=== PATIENT | male | born 1970 | race Caucasian/White ===

== ENCOUNTER 2024-09-25 01:07 | Inpatient (IN) | payer OTHER ==
[2024-09-25] VITALS (10 sets, daily range): BP systolic 116–119; BP diastolic 61–64; PULSE 114–151; RESP 16–28; TEMP 99.8; O2SAT 91–97
[~2024-09-25] VITALS: Ht 177.8 cm; Wt 99.7 kg
[2024-09-25 01:16] LABS: Basophils # (auto) 0 10 ^3/uL (0-0.2); Basophils % (auto) 0.1 % (0.0-2.0); Eosinophils # (auto) 0 10 ^3/uL (0-0.8); Hemoglobin 9.4 g/dL (13.5-17.5); Lymphocytes # (auto) 0.6 10 ^3/uL (0.4-5.4); Lymphocytes % (auto) 10.2 % (10.0-50.0); Mean Corpuscular Hemoglobin 39.6 pg (28.0-32.0); Mean Corpuscular Hgb Conc. 34.8 g/dL (32.0-36.0); Mean Corpuscular Volume 113.9 fL (80.0-100.0); Monocytes # (auto) 0.1 10 ^3/uL (0-1.3); Monocytes % (auto) 2.3 % (0.0-12.0); Neutrophils # (auto) 5.3 10 ^3/uL (1.6-8.6); Neutrophils % (auto) 87.4 % (37.0-80.0); Platelet Count (auto) 130 10^3/uL (140-450); Red Blood Cells 2.37 10^6/uL (4.5-5.90); Red Cell Distribution Width 17.3 % (11.8-14.3); White Blood Cell 6.1 10^3/uL (4.4-10.8)
--- NOTE | 2024-09-25 01:18 | ED.PDOC ---
SOB-HPI HPI Comments A 54 year old male brought in by EMS to the ED with a chief complaint of respiratory distress onset yesterday around 11:30 am. Per EMS, patient arrived to [facility] yesterday around 1130 am with respiratory distress, was placed on 6L c-pap and had a paracentesis, had 6 L drained. Patient states he feels about 70% better since his arrival to [facility]. Patient has a past medical history of COPD and anxiety. No other symptoms or modifying factors present at this time. Time Seen by MD: :10 Reviewed notes: Medications, Allergies Information Source: Patient, Emergency Med Personnel Mode of Arrival: EMS Severity: Moderate Timing: Hours Duration: Since onset History of: COPD, Anxiety Prehospital treatment: C-Pap Associated Signs and Symptoms: Leg Swelling Past Medical History PAST MEDICAL HISTORY: Anxiety, COPD Surgical History: Denies all surgeries Family History Family History: Reviewed,noncontributory to illness, No family hx of Cancer, No family hx of DM, No family hx of Heart rose marie, No family hx of HTN, No family hx ofKidney rose marie, No family hx of Liver rose marie, No family hx of Lung rose marie, No family hx of Stroke Social History Smoker: Non-Smoker Alcohol: Denies ETOH Use Drugs: Denies Drug Use Lives In: Home Constitutional: denies: chills, diaphoresis, fatigue, fever, malaise, sweats, weakness, others EENTM: denies: blurred vision, double vision, ear bleeding, ear discharge, ear drainage, ear pain, ear ringing, eye pain, eye redness, hearing loss, mouth pain, mouth swelling, nasal discharge, nose bleeding, nose congestion, nose pain, photophobia, tearing, throat pain, throat swelling, voice changes, others Respiratory: reports: shortness of breath; denies: cough, hemoptysis, orthopnea, SOB at rest, SOB with excertion, stridor, wheezing, others Cardiovascular: reports: edema; denies: chest pain, dizzy spells, diaphoresis, Dyspnea on exertion, irregular heart beat, left arm pain, lightheadedness, palpitations, PND, syncope, others Gastrointestinal: reports: abdomen distended; denies: abdominal pain, blood streaked bowels, constipated, diarrhea, dysphagia, difficulty swallowing, hematemesis, melena, nausea, poor appetite, poor fluid intake, rectal bleeding, rectal pain, vomiting, others Genitourinary: denies: burning, dysuria, flank pain, frequency, hematuria, incontinence, penile discharge, penile sore, pain, testicle pain, testicle swelling, urgency, others Neurological: denies: dizziness, fainting, headache, left sided numbness, left sided weakness, numbness, paresthesia, pre-existing deficit, right sided numbness, right sided weakness, seizure, speech problems, tingling, tremors, weakness, others Musculoskeletal: denies: back pain, gout, joint pain, joint swelling, muscle pain, muscle stiffness, neck pain, others Integumetry: denies: bruises, change in color, change in hair/nails, dryness, laceration, lesions, lumps, rash, wounds, others Allergic/Immunocompromised: denies: Difficulty Healing, Frequent Infections, Hives, Itching, others Hematologic/Lymphatic: denies: anemia, blood clots, easy bleeding, easy bruising, swollen glands, others Endocrine: denies: excessive hunger, excessive sweating, excessive thirst, excessive urination, flushing, intolerance to cold, intolerance to heat, unexplained weight gain, unexplained weight loss, others Psychiatric: denies: anxiety, bipolar disorder, depression, hopeless, panic disorder, schizophrenia, sleepless, suicidal, others All Other Systems: Reviewed and Negative Physical Exam General Appearance: No Apparent Distress, Normal HEENT: Normal ENT Inspection, Pharynx Normal, TMs Normal Neck: Full Range of Motion, Non-Tender, Normal, Normal Inspection Respiratory: Chest Non-Tender, Lungs Clear, No Accessory Muscle Use, No Respiratory Distress, Normal Breath Sounds Cardiovascular: No Edema, No JVD, No Murmur, No Gallop, Normal Peripheral Pulses, Regular Rate/Rhythm Breast Exam: Deferred Gastrointestinal: No Organomegaly, Non Tender, No Pulsatile Mass, Normal Bowel Sounds, Soft Genitalia: Deferred Pelvic: Deferred Rectal: Deferred Extremities: Pedal edema (2+) Musculoskeletal : Apperance: Normal Neurologic: Alert, demurrage clerk II-XII nml as Tested, No Motor Deficits, Normal Affect, Normal Mood, No Sensory Deficits Cerebellar Function: Normal Reflexes: Normal Skin: Dry, Jaundice, Warm Lymphatic: No Adenopathy Was a procedure done? Was a procedure done?: No Differential Dx Differential Diagnosis: Asthma, CHF, COPD X-Ray, Labs, Meds, VS Vital Signs Date Time Temp Pulse Resp B/P (MAP) Pulse Ox O2 Delivery O2 Flow Rate FiO2 09/25/24 01:25 98.6 111 20 116/82 (93) 97 09/25/24 01:24 114 16 96 Nasal Cannula* 2 28 09/25/24 01:24 98.3 114 16 101/55 (70) 96 98.3 Lab Test 09/25/24 01:00 Range/Units White Blood Count 6.1 4.4-10.8 10^3/uL Red Blood Count 2.37 L 4.5-5.90 10^6/uL Hemoglobin 9.4 L 13.5-17.5 g/dL Hematocrit 27.0 L 41.0-53.0 % Mean Corpuscular Volume 113.9 H 80.0-100.0 fL Mean Corpuscular Hemoglobin 39.6 H 28.0-32.0 pg Mean Corpuscular Hemoglobin Concent 34.8 32.0-36.0 g/dL Red Cell Distribution Width 17.3 H 11.8-14.3 % Platelet Count 130 L 140-450 10^3/uL Mean Platelet Volume 7.3 6.9-10.8 fL Neutrophils (%) (Auto) 87.4 H 37.0-80.0 % Lymphocytes (%) (Auto) 10.2 10.0-50.0 % Monocytes (%) (Auto) 2.3 0.0-12.0 % Eosinophils (%) (Auto) 0.0 0.0-7.0 % Basophils (%) (Auto) 0.1 0.0-2.0 % Neutrophils # (Auto) 5.3 1.6-8.6 10 ^3/uL Lymphocytes # (Auto) 0.6 0.4-5.4 10 ^3/uL Monocytes # (Auto) 0.1 0-1.3 10 ^3/uL Eosinophils # (Auto) 0 0-0.8 10 ^3/uL Basophils # (Auto) 0 0-0.2 10 ^3/uL Nucleated Red Blood Cells 0.0 % Platelet Estimate Pending Sodium Level 130 L 136-145 mmol/L Potassium Level 3.4 L 3.5-5.1 mmol/L Chloride Level 98 98-107 mmol/L Carbon Dioxide Level 23 20-31 mmol/L Anion Gap 9 5-15 Blood Urea Nitrogen 8 L 9-23 mg/dL Creatinine 0.81 0.700-1.30 mg/dL Glomerular Filtration Rate Calc 106 >90 mL/min BUN/Creatinine Ratio 9.9 L 10.0-20.0 Serum Glucose 128 H 74-106 mg/dL Calcium Level 7.7 L 8.7-10.4 mg/dL Troponin I High Sensitivity 8 </=54 ng/L [place] [id number] Ph: [phone] DIAGNOSTIC IMAGING Diagnostic Imaging Report : [id number] Signed PATIENT: PHI CALLEACCT: [id number] UNIT: [id number] : 1970 LOC: ER ROOM / BED: / AGE / SEX: 54 / M ADM STATUS: REG ER SERVICE 0 ORDERING PHYSICIAN: VICK BARROS MD PROCEDURE(s): CXRP - CHEST PORTABLE REASON: sob ORDER NUMBER(s): [id number], ACCESSION NUMBER(s): [id number] CHEST RADIOGRAPH Indication:sob Technique: Single frontal view of the chest was obtained Comparison: None Findings/ IMPRESSION: Moderate hazy opacification overlying the left hemithorax suggestive of pleural effusion with underlying infectious process not excluded. No pneumothorax. ATED BY: MARIA DOLORES CHO DO DICTATED DATE/TIME: 09/25/24105 SIGNED BY: MARIA DOLORES CHO DO SIGNED DATE/TIME: 09/25/24105 CC: Time of 1ST Reevaluation: 01:40 Reevaluation 1ST: Unchanged Patient Education/Counseling: Diagnosis, Treatment, Prognosis Family Education/Counseling: No Family Present Departure 1 Departure Time of Disposition: 02:15 (Patient was a transfer here for worsening shortness of breath. Patient likely with CHF exacerbation. Discharge patient home with outpatient follow up) Impression: Primary Impression: Shortness of breath Additional Impressions: Acute exacerbation of chronic heart failure Cirrhosis Qualified Codes: K74.60 - Unspecified cirrhosis of liver; R18.8 - Other ascites Disposition: ADMITTED INPATIENT Admit to: Med Surg Condition: Serious Critical Care Note Critical Care Time?: No Stability Stability form required: No Heart Score Heart Score: Heart Score Response (Comments) Value History Slightly Suspicious 0 EKG Repolarization Disturb 1 Age 45-64 1 Risk Factors >3 or Hx ASHD 2 Troponin 1-2 x's Normal limit 1 Total 5 I personally scribed for VICK BARROS MD ([email or web address]) on 09/25/24 at 01:18. Electronically submitted by Emilie Gong ([email or web address]). I personally scribed for VICK BARROS MD ([email or web address]) on 09/25/24 at 01:57. Electronically submitted by Emilie Gong ([email or web address]). VICK BARROS MD Sep 25, 2024 01:18
[2024-09-25 01:29] LABS: Chloride 98 mmol/L (98-107); Potassium 3.4 mmol/L (3.5-5.1); Sodium 130 mmol/L (136-145)
[2024-09-25 01:30] LABS: Anion Gap 9 (5-15); Carbon Dioxide 23 mmol/L (20-31)
[2024-09-25 01:31] LABS: Calcium 7.7 mg/dL (8.7-10.4)
[2024-09-25 01:35] LABS: Glucose 128 mg/dL (74-106)
[2024-09-25 01:36] LABS: BUN/Creatinine Ratio 9.9 (10.0-20.0); Blood Urea Nitrogen 8 mg/dL (9-23)
--- NOTE | 2024-09-25 01:38 | DVH ---
CHEST RADIOGRAPH Indication:sob Technique: Single frontal view of the chest was obtained Comparison: None Findings/ IMPRESSION: Moderate hazy opacification overlying the left hemithorax suggestive of pleural effusion with underly ing infectious process not excluded. No pneumothorax.
[2024-09-25 03:31] LABS: Platelet Estimate Decreased
[2024-09-25 03:32] LABS: Macrocytosis Slight
[2024-09-25] MEDS: ONDANSETRON HCL 4 MG/2 ML VIAL IV ONE (08:13)
[2024-09-25] MEDS: MORPHINE SULFATE INJ 2 MG/ml SYRG IV ONE (08:14)
[2024-09-25] MEDS ORDERED: ONDANSETRON HCL 4 MG/2 ML VIAL IV PRN (10:15)
[2024-09-25] MEDS ORDERED: ALBUTEROL SULF 2.5 MG/0.5ML(0.5%) NEB SOLN NEB PRN (10:15)
[2024-09-25] MEDS ORDERED: IPRATROPIUM BROM 0.5 MG/2.5ML INH SOL NEB PRN (10:15)
--- NOTE | 2024-09-25 10:26 | DVHHP2 ---
History of Present Illness Reason for Visit: Shortness of breath History of Present Illness This 54-year-old male presents in the ED via EMS with a chief complaint of shortness of breath. The patient is transferred from [facility]. The patient is alert and oriented states started having shortness of breath yesterday and was found hypoxia at 70%. Patient reports history of COPD, alcohol liver cirrhosis, ascites and states had a paracentesis yesterday and 6 L was removed. Other past medical history of DVT on left lower extremity currently on Eliquis, anxiety, tobacco use, and ex alcohol abuse. Past Medical History As stated in HPI Past Surgical History Denies Family History Reviewed, non-contributory to the management of this case. Past Social History Tobacco use Denies EtOH or illicit drug use Review of Systems Constitutional: Yes: Malaise; No: Fever, Chills, Sweats, Weakness, Other Eyes: No: Pain, Vision change, Conjunctivae inflammation, Eyelid inflammation, Other, Redness ENT: No: Ear pain, Ear discharge, Nose pain, Nose discharge, Nose congestion, Mouth pain, Mouth swelling, Throat pain, Throat swelling, Other Respiratory: Shortness of breath; No: Cough, Dry, SOB with excertion, Wheezing, Hemoptysis, Pleuritic Pain, Sputum, Wheezing, Other Cardiovascular: No: Chest Pain, Palpitations, Orthopnea, Paroxysmal Noc. Dyspnea, Edema, Lt Headedness, Other Gastrointestinal: Abdominal Pain; No: Nausea, Vomiting, Diarrhea, Constipation, Melena, Hematochezia, Other Genitourinary: No Dysuria, No Frequency, No Incontinence, No Hematuria, No Retention, No Other Musculoskeletal: No: other, neck pain, shoulder pain, arm pain, back pain, hand pain, leg pain, foot pain Skin: No: Rash, Lesions, Jaundice, Bruising, Other Allergies: Coded Allergies: No Known Drug Allergy (Verified Allergy, Unknown, 09/25/24) Exam Vital Signs Vital Signs Date Time Temp Pulse Resp B/P (MAP) Pulse Ox O2 Delivery O2 Flow Rate FiO2 09/25/24 09:30 121 13 119/64 09/25/24 08:00 92 Nasal Cannula* 2 28 09/25/24 01:25 98.6 General Appearance: Alert, Oriented X3, Cooperative, mild distress HEENT: Atraumatic, PERRLA Respiratory: Clear to auscultation, Normal air movement Cardiovascular: Regular rate, Normal S1, Normal S2 Abdominal: Normal bowel sounds, Other (Ascites) Extremities: No clubbing, No cyanosis, Other (Bilateral lower extremity edema) Skin: No rashes, No breakdown Neuro: Normal gait, Normal speech, Strength at 5/5 X4 ext, Normal tone Psych/Mental Status: Mental status NL Labs/Xrays Labs Test 09/25/24 02:08 09/25/24 01:00 Range/Units Troponin I High Sensitivity 7 </=54 ng/L White Blood Count 6.1 4.4-10.8 10^3/uL Red Blood Count 2.37 L 4.5-5.90 10^6/uL Hemoglobin 9.4 L 13.5-17.5 g/dL Hematocrit 27.0 L 41.0-53.0 % Mean Corpuscular Volume 113.9 H 80.0-100.0 fL Mean Corpuscular Hemoglobin 39.6 H 28.0-32.0 pg Mean Corpuscular Hemoglobin Concent 34.8 32.0-36.0 g/dL Red Cell Distribution Width 17.3 H 11.8-14.3 % Platelet Count 130 L 140-450 10^3/uL Mean Platelet Volume 7.3 6.9-10.8 fL Neutrophils (%) (Auto) 87.4 H 37.0-80.0 % Lymphocytes (%) (Auto) 10.2 10.0-50.0 % Monocytes (%) (Auto) 2.3 0.0-12.0 % Eosinophils (%) (Auto) 0.0 0.0-7.0 % Basophils (%) (Auto) 0.1 0.0-2.0 % Neutrophils # (Auto) 5.3 1.6-8.6 10 ^3/uL Lymphocytes # (Auto) 0.6 0.4-5.4 10 ^3/uL Monocytes # (Auto) 0.1 0-1.3 10 ^3/uL Eosinophils # (Auto) 0 0-0.8 10 ^3/uL Basophils # (Auto) 0 0-0.2 10 ^3/uL Nucleated Red Blood Cells 0.0 % Platelet Estimate Decreased Macrocytosis Slight Sodium Level 130 L 136-145 mmol/L Potassium Level 3.4 L 3.5-5.1 mmol/L Chloride Level 98 98-107 mmol/L Carbon Dioxide Level 23 20-31 mmol/L Anion Gap 9 5-15 Blood Urea Nitrogen 8 L 9-23 mg/dL Creatinine 0.81 0.700-1.30 mg/dL Glomerular Filtration Rate Calc 106 >90 mL/min BUN/Creatinine Ratio 9.9 L 10.0-20.0 Serum Glucose 128 H 74-106 mg/dL Calcium Level 7.7 L 8.7-10.4 mg/dL PROCEDURE(s): CXRP - CHEST PORTABLE REASON: sob ORDER NUMBER(s): [id number], ACCESSION NUMBER(s): [id number] CHEST RADIOGRAPH Indication:sob Technique: Single frontal view of the chest was obtained Comparison: None Findings/ IMPRESSION: Moderate hazy opacification overlying the left hemithorax suggestive of pleural effusion with underlying infectious process not excluded. No pneumothorax. Assessment/Plan Assessment/Plan # Acute hypoxic respiratory failure, likely secondary to abdominal ascites # acute on chronic COPD exacerbation Admit to telemetry unit O2 supplement to keep sat >90% Med neb treatment Chest x-ray # alcohol liver cirrhosis # abdominal ascites # s/p paracentesis on 09/24/24 with 6 L output Radiology consult for evaluation of possible paracentesis IV diuresis # hx of left lower extremity DVT # bilateral lower extremity edema 2/2 liver cirrhosis # rule out CHF Currently on Eliquis - hold until eval for paracentesis DVT prophylax lucas lovenox Bilateral lower extremity US pending Echo # tobacco use Nicotine patch Smoking cessation counseled Medical plan discussed with patient and RN Plan discussed with: Patient Date of Service: Sep 25, 2024 Billing Provider: ANTOINETTE BEAL Common Visit Codes: 94949-[id number] INP/OBS CARE (HIGH) ANTOINETTE BEAL Sep 25, 2024 10:26
[2024-09-25] MEDS: POTASSIUM CHL 20 Meq TABLET PO ONE (10:30)
[2024-09-25] MEDS: POTASSIUM CHL 20MEQ/100ML 100 ML IV ONE (10:31)
[2024-09-25] MEDS: NICOTINE 7MG/24HR TOPICAL PATCH TD ONE (10:31)
[2024-09-25 10:42] LABS: Triglycerides 89 mg/dL (< 150)
[2024-09-25 10:43] LABS: LDL Cholesterol 39 mg/dL (< 100)
[2024-09-25 10:44] LABS: Cholesterol 108 mg/dL (< 200); HDL Cholesterol 11 mg/dL (40-59)
[2024-09-25] MEDS: IPRATROPIUM BROM 0.5 MG/2.5ML INH SOL NEB SCH (11:08)
[2024-09-25] MEDS: ALBUTEROL SULF 2.5 MG/0.5ML(0.5%) NEB SOLN NEB SCH (11:08)
[2024-09-25] MEDS: ENOXAPARIN SOD 40 MG/0.4 ML SYRINGE SC ONE ×2 (12:05→13:21)
--- NOTE | 2024-09-25 12:11 | DVH ---
Bilateral lower extremity venous duplex Clinical History: hx of dvt, swelling Comparison: None Technique: Duplex Doppler evaluation of the deep venous systems of both lower extremities from the common femora l veins to the popliteal veins including color Doppler and spectral/pulsed waveform analysis was perf ormed. Findings: RIGHT SIDE: The common femoral vein demonstrates appropriate compressibility and waveform variability. There is compressibility/patency of the great saphenous vein at the proximal thigh. The femoral vein demonstrates appropriate compressibility and waveform variability. The deep femoral vein demonstrates appropriate compressibility and waveform variability. The popliteal vein demonstrates appropriate compressibility and waveform variability. There is color flow at the tibioperoneal trunk and in the posterior tibial vein. LEFT SIDE: The common femoral vein demonstrates appropriate compressibility and waveform variability. There is compressibility/patency of the great saphenous vein at the proximal thigh. The femoral vein demonstrates appropriate compressibility and waveform variability. The deep femoral vein demonstrates appropriate compressibility and waveform variability. The popliteal vein demonstrates appropriate compressibility and waveform variability. There is color flow at the tibioperoneal trunk and in the posterior tibial vein. Impression: 1. No right or left femoropopliteal venous thrombosis.
[2024-09-25] MEDS: MORPHINE SULFATE INJ 2 MG/ml SYRG IV PRN (16:55)
[2024-09-25] MEDS: FUROSEMIDE 40 MG/4 ML VIAL IV ONE (16:55)
[2024-09-25] MEDS: LEVALBUTEROL HCL 1.25 MG/3 ML NEB NEB SCH (23:53)
[2024-09-26] VITALS (110 sets, daily range): BP systolic 56–111; BP diastolic 31–66; PULSE 111–144; RESP 13–32; TEMP 97.6–100.5; O2SAT 73–100
[2024-09-26] MEDS: dilTIAZem 25 MG/5 ML VIAL IV ONE ×2 (00:07→03:54)
[2024-09-26] MEDS: AZITHROMYCIN 500MG/ 250ML 250 ML IV ONE (00:07)
[2024-09-26] MEDS: FUROSEMIDE 20 MG/2 ML VIAL IV ONE (03:30)
[2024-09-26 03:50] LABS: Base Excess -5.7 mmol/L (-2.0-3.0)
--- NOTE | 2024-09-26 04:52 | DVH ---
INDICATION: r/o pe TECHNIQUE: Multidetector CTA of the chest was performed of the chest with 100 cc of intravenous contr ast. PULMONARY ANGIOGRAPHY PROTOCOL was utilized using a bolus-tracking technique centered on the frannie n pulmonary artery. Axial, coronal and sagittal multiplanar and MIP reformats were performed. Radiation Dose Information: CT Dose: CTDI volume is 20.33 mGy. Dose-length product is 507.8 mGy*cm The dose indicators for CT are the volume Computed Tomography (CT) Dose Index (CTDIvol) and the Dose Length Product (DLP), and are measured in units of mGy and mGy-cm, respectively. These indicators are not patient dose, but values generated from the CT scanner acquisition factors. The report includes radiation exposure data for exposures received during this examination. Comparison: Chest radiograph dated 09/25/2024 Findings: Pulmonary artery: Normal caliber of the pulmonary artery. Suboptimal enhancement of the pulmonary a rteries limits evaluation for pulmonary embolism. No main pulmonary embolism. Lobar and other branche s not evaluated. Lower neck: Normal thyroid. Lungs: Right upper and right middle lobe ground-glass opacities suspicious for pneumonia. Right basil ar atelectasis. Left lower lobe passive atelectasis. Pleura: Moderate left pleural effusion. No pneumothorax. Heart/Vascular Structures: Normal heart size. Coronary artery calcifications. Normal caliber and enha ncement of the aorta. Lymph Nodes: No adenopathy Musculoskeletal: No acute osseous abnormality. Upper abdomen: Limited portions of the upper abdomen are unremarkable. IMPRESSION: 1. Suboptimal enhancement of the pulmonary arteries limits evaluation for pulmonary embolism. No cent ral pulmonary embolism. 2. Moderate left pleural effusion. Left lower lobe passive atelectasis. Right basilar dependent atel ectasis. 3. Ground-glass opacities in the right upper and middle lobe suspicious for pneumonia in the appropri ate clinical setting.
[2024-09-26] MEDS: IOHEXOL 300 MG/ML 100ML BOTTLE IJ ONE (05:02)
[2024-09-26] MEDS: dilTIAZem 125mg/125ml BAG KIT 100 ML IV SCH (05:02)
[2024-09-26 06:11] LABS: COVID19 ANTIGEN SOFIA FIA NEGATIVE (NEGATIVE)
[2024-09-26] MEDS: ALBUMIN 5% 250 ML IV ONE (06:16)
[2024-09-26 06:33] LABS: Alanine Aminotransferase 36 U/L (7-40); Albumin 1.7 g/dL (3.2-4.8); Alkaline Phosphatase 88 U/L (46-116); Anion Gap 16 (5-15); Aspartate Aminotransferase 170 U/L (13-40); BUN/Creatinine Ratio 10.7 (10.0-20.0); Bilirubin, Total 10.6 mg/dL (0.2-1.0); Blood Urea Nitrogen 15 mg/dL (9-23); Calcium 7.9 mg/dL (8.7-10.4); Carbon Dioxide 16 mmol/L (20-31); Chloride 99 mmol/L (98-107); Potassium 3.5 mmol/L (3.5-5.1); Sodium 131 mmol/L (136-145); Total Protein 6.8 g/dL (5.7-8.2)
[2024-09-26 06:48] LABS: Glucose 17 mg/dL (74-106)
[2024-09-26 06:49] LABS: Hematocrit 26.3 % (41.0-53.0); Hemoglobin 8.7 g/dL (13.5-17.5); Mean Corpuscular Hemoglobin 39.3 pg (28.0-32.0); Mean Corpuscular Hgb Conc. 33.2 g/dL (32.0-36.0); Mean Corpuscular Volume 118.1 fL (80.0-100.0); Platelet Count (auto) 100 10^3/uL (140-450); Red Blood Cells 2.23 10^6/uL (4.5-5.90); Red Cell Distribution Width 17.8 % (11.8-14.3); White Blood Cell 1.3 10^3/uL (4.4-10.8)
[2024-09-26 06:50] LABS: Basophils % (manual) 0 (0.0-2.0); Blast Cells 0; Myelocytes % 0; Promyelocytes % 0; Reactive Lymphocytes 0
[2024-09-26] MEDS ORDERED: chlordiazePOXIDE HCL 25 MG CAP PO SCH (07:00)
[2024-09-26] MEDS: DEXTROSE (50%) 50ML SYRG IV ONE ×3 (07:15→07:30)
[2024-09-26 07:19] LABS: Lactic Acid w/Reflex 14.5 mmol/L (0.4-2.0)
[2024-09-26] MEDS: ACCU-CHEK COMFORT CURVE STRIP VI ONE ×2 (07:21→07:30)
[2024-09-26] MEDS ORDERED: VANCOMYCIN PER PHARMACY 0 MG IV SCH (07:30)
[2024-09-26] MEDS ORDERED: PIPERACILLIN-TAZOB 3.375GM 100 ML IV SCH (07:30)
[2024-09-26 07:34] LABS: Base Excess -15.7 mmol/L (-2.0-3.0)
[2024-09-26] MEDS: SODIUM CHLORIDE 0.9% 2,000 ML IV ONE (08:06)
[2024-09-26] MEDS: DEXTROSE 50% SYRINGE 50 ML IV ONE ×2 (08:09→08:19)
[2024-09-26 08:13] LABS: Band Neutrophils % (manual) 16; Eosinophils % (manual) 3 (0-7); Lymphocytes % (manual) 14 (10.0-50.0); Metamyelocytes % 1; Monocytes % (manual) 5 (0-12)
[2024-09-26 08:14] LABS: Anisocytosis Slight; Macrocytosis Marked; Platelet Estimate Decreased
[2024-09-26 08:18] LABS: INR 2.61 (0.9-1.15); Partial Thromboplastin Time 40.6 SEC (24.5-34.5); Prothrombin Time 25.8 sec (9.3-11.8)
[2024-09-26] MEDS: MEROPENEM 1GM IVPB 50 ML IV ONE (08:30)
[2024-09-26] MEDS ORDERED: NOREPINEPHRINE 8 MG/250ML KIT 250 ML IV SCH (08:30)
[2024-09-26] MEDS: PHENYLEPHRINE IV 250 ML IV ONE ×2 (08:33→15:03)
--- NOTE | 2024-09-26 08:44 | DVH ---
ULTRASOUND ABDOMEN LIMITED INDICATION: Abdominal pain.. TECHNIQUE: Multiple real-time sonographic images of the 4 quadrants of the abdomen. COMPARISON: None FINDINGS: There is ascites seen in all 4 quadrants of the abdomen. IMPRESSION: 1. Ascites seen in all 4 quadrants of the abdomen. HS:Y
[2024-09-26] MEDS ORDERED: cefTRIAXone 1GM/50ML D5W 50 ML IV SCH (09:00)
[2024-09-26] MEDS: MIDAZOLAM DRIP 50 mg/50mL 50 ML IV SCH (09:00)
[2024-09-26 09:16] LABS: Urine Bacteria None Seen /hpf (None Seen); Urine WBC None Seen /hpf (0 - 3)
[2024-09-26] MEDS: ETOMIDATE (2MG/ML) 20ML VIAL IV ONE ×2 (09:22→09:44)
[2024-09-26] MEDS: ROCURONIUM 10MG/ML 10ML VIAL IV ONE ×2 (09:24→09:45)
[2024-09-26] MEDS: NOREPINEPHRINE 8 MG/250ML KIT 250 ML IV SCH (09:25)
[2024-09-26] MEDS: MIDAZOLAM DRIP 50 mg/50mL 50 ML IV ONE (09:44)
[2024-09-26] MEDS: FUROSEMIDE 20 MG/2 ML VIAL IV SCH (10:00)
[2024-09-26] MEDS ORDERED: NICOTINE 7MG/24HR TOPICAL PATCH TD SCH (10:00)
[2024-09-26] MEDS ORDERED: ENOXAPARIN SOD 40 MG/0.4 ML SYRINGE SC SCH (10:00)
[2024-09-26] MEDS ORDERED: POTASSIUM CHL 20 Meq TABLET PO SCH (10:00)
[2024-09-26 10:04] LABS: Urine Blood Negative /uL (Negative); Urine Protein, UAD Negative (Negative); Urine Specific Gravity 1.016 (1.001-1.035); Urine Urobilinogen 8 mg/dL (Negative); Urine pH 5.5 (5.0-9.0)
[2024-09-26 10:07] LABS: Urine Clarity Hazy (Clear); Urine Color Yellow (Yellow)
--- NOTE | 2024-09-26 10:36 | DVH ---
CHEST RADIOGRAPH Indication:intubated Technique: Single frontal view of the chest was obtained COMPARISON: XY CHEST PORTABLE on DOS: 09/25/24 FINDINGS: Lines and Tubes: Endotracheal tube, enteric catheter and right central venous catheter in satisfactor y position. Lungs: Clear Pleura: Small left pleural effusion. No pneumothorax. Cardiomediastinal contours: Unremarkable Bones: Unremarkable IMPRESSION: Lines and tubes in satisfactory position.
[2024-09-26] MEDS: fentaNYL Drip 2500mCg/250mlNS 250 ML IV SCH (10:46)
[2024-09-26] MEDS: PANTOPRAZOLE 80 MG in SODIUM CHL 0.9% 100 ML IV ONE (10:47)
[2024-09-26] MEDS: NOREPINEPHRINE 8 MG/250ML KIT 250 ML IV ONE (10:51)
--- NOTE | 2024-09-26 10:52 | ECG ---
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
[2024-09-26 10:55] LABS: Amphetamine Screen, Urine Neg (NEGATIVE); Barbiturate Scree,Urine Neg (NEGATIVE); Benzodiazephine Screen, Urine Neg (NEGATIVE)
[2024-09-26 10:56] LABS: Cannabinoid Screen, Urine Neg (NEGATIVE); Cocaine Screen, Urine Neg (NEGATIVE); Opiate Scree,Urine Pos (NEGATIVE); Phencyclidine Screen, Urine Neg (NEGATIVE)
[2024-09-26 10:59] LABS: Base Excess -21.1 mmol/L (-2.0-3.0)
[2024-09-26] MEDS: ALBUMIN 25% 100 ML IV ONE (11:15)
[2024-09-26] MEDS ORDERED: OCTREOTIDE ACETATE 100 MCG in SODIUM CHL 0.9% 50 ML IV ONE (11:30)
[2024-09-26] MEDS: SODIUM BICARB 8.4% 50Meq/50ml SYR Vial IV ONE ×4 (11:43→22:32)
[2024-09-26] MEDS: SODIUM BICARB 50mEq/50ml Vial 100 ML in D5W 5% 1,000 ML IV SCH (11:44)
[2024-09-26] MEDS: VASOPRESSIN 20 UNIT/ML ONE (11:45)
--- NOTE | 2024-09-26 11:47 | DVHNC2 ---
Procedure - Software Intern: Dr Garcia PGY2: Singh PGY1: Rubens central line catheter insertion starting with the first handwash prior to starting sterile technique. A time out was performed. My hands were washed immediately prior to the procedure. I wore a surgical cap, mask with protective eyewear, full gown and sterile gloves throughout the procedure. The patient was placed in Trendelenburg position. RIGHT chest region was prepped using chlorhexidine scrub and draped in sterile fashion using a full drape and sterile probe cover and sterile gel employed. The medial and lateral heads of the sternocleidomastoid muscle were identified as was the carotid pulse. The Internal Jugular vein was identified using the ultrasound. Anesthesia was achieved over the vein using 1% lidocaine. Using real-time out of plane guidance, the introducer needle was inserted into the Internal Jugular vein under direct ultrasound visualization. Venous blood was withdrawn. The syringe was removed and a guidewire was advanced into the introducer needle. The guidewire was visualized in the Internal Jugular Vein by ultrasound. A small incision was made at the skin surface with a scalpel and the introducer needle was exchanged for a dilator over the guidewire. After appropriate dilation was obtained, the dilator was exchanged over the wire for the catheter. The wire wa s removed and the catheter was sutured in place. A sterile Tegaderm shield was placed over the catheter at the insertion site. The patient tolerated the procedure without any hemodynamic compromise. At time of procedure completion, all ports aspirated and flushed properly. Post-procedure chest x-ray without pneumothorax and the tip in adequate position . Estimated blood loss is 50 cc. JOHNATHAN MARTÍNEZ RESIDENT Sep 26, 2024 11:47
--- NOTE | 2024-09-26 11:47 | DVHPNRES ---
Progress Note Date Seen: Sep 27, 2024 Resident Creating Document: JOHNATHAN MARTÍNEZ RESIDENT Has the PT tested + for MRSA If YES, has PT been informed?: No Medical Necessity Reason Pt with a Central, PICC or Fol: Yes The following are medically ne: Central Line Subjective Review of Systems Chief Complaint: 54-year-old male presenting with severe shortness of breath. HPI The patient, a 54-year-old male with a known history of COPD, alcohol-induced liver cirrhosis, and ascites, was transferred from [facility] after presenting with severe shortness of breath and hypoxia (70% on room air). He underwent a paracentesis there, with 6L of fluid removed . Here in the ICU The patient was intubated due to acute respiratory failure and has been started on multiple vasopressors for septic shock. He had episodes of hypoglycemia attributed to acute liver failure and significant metabolic acidosis. Past Medical History: Alcohol-induced liver cirrhosis Ascites History of left lower extremity DVT Anxiety Tobacco use Alcohol abuse According to the family patient was non compliant with medications, no PCP Objective vital signs Vital Sign Date Time Temp Pulse Resp B/P (MAP) Pulse Ox O2 Delivery O2 Flow Rate FiO2 09/26/24 11:45 86/45 09/26/24 10:11 111 19 99 100 09/26/24 08:30 50.0 09/26/24 06:11 Oxymizer 09/26/24 04:30 100.4 100.4 Total Intake and Output 09/25/24 09/25/24 09/26/24 15:00 23:00 07:00 Intake Total 100 ml 10 ml Balance 100 ml 10 ml medications Current Medications Medications Dose Ordered Sig/Marii Route Start Time Stop Time Status Last Admin Dose Admin Morphine Sulfate 2 mg Q4HPRN PRN IV 09/25/24 10:15 09/25/24 20:25 2 MG Nicotine 1 patch DAILY TD 09/26/24 10:00 Furosemide 20 mg DAILY IV 09/26/24 10:00 Albuterol 2.5 mg Q4HPRN PRN NEB 09/25/24 10:15 Folic Acid 1 mg/ Multivitamins 10 ml/Magnesium Sulfate 8 meq/ Thiamine HCl 100 mg/Dextrose 1,013.2 ml @ 125.001 mls/hr DAILY@1800 INJ 09/26/24 18:00 Diagnostic Test (Pha) 1 strip Q4HR 09/26/24 10:00 Piperacillin Sod/ Tazobactam Sod 100 ml @ 25 mls/hr Q8HR IV 09/26/24 07:30 Cancel Vancomycin HCl 0 ml @ 0 mls/hr UD IV 09/26/24 07:30 Lactulose 30 ml BID PO 09/26/24 10:00 Meropenem 50 ml @ 17 mls/hr Q8HR IV 09/26/24 14:00 Norepinephrine Bitartrate 250 ml @ 3.75 mls/hr Q24H IV 09/26/24 08:30 UNV Midazolam HCl 50 ml @ 1 mls/hr Q24H IV 09/26/24 09:00 Fentanyl Citrate 250 ml @ 2.5 mls/hr Q24H IV 09/26/24 09:00 09/26/24 10:46 2.5 MLS/HR Norepinephrine Bitartrate 250 ml @ 3.75 mls/hr Q24H IV 09/26/24 09:00 09/26/24 09:25 3.75 MLS/HR Pantoprazole Sodium 50 ml @ 10 mls/hr Q5H IV 09/26/24 09:00 Sodium Bicarbonate 100 ml/Dextrose 1,100 ml @ 100 mls/hr Q11H IV 09/26/24 10:30 09/26/24 11:44 100 MLS/HR Albumin Human 100 ml @ 100 mls/hr Q8H IV 09/26/24 14:00 09/27/24 06:59 Octreotide Acetate 500 mcg/ Sodium Chloride 100 ml @ 10 mls/hr Q10H IV 09/26/24 10:45 Vasopressin 20 units/Sodium Chloride 100 ml @ 9 mls/hr Q11H7M IV 09/26/24 11:15 UNV Octreotide Acetate 500 mcg/ Sodium Chloride 100 ml @ 10 mls/hr Q10H IV 09/26/24 11:30 UNV Examination Alert, oriented X3, cooperative, in significant respiratory distress before intubation HEENT:jaundice Atraumatic, PERRLA. Respiratory:Intubated, bilateral breath sounds present but diminished. Cardiovascular: tachycardic, normal S1, S2, tachycardia present. Abdominal: Distended, significant ascites noted. Extremities:Bilateral lower extremity edema, no cyanosis or clubbing. Skin:No rashes, breakdown, or significant lesions. Neuro:Intubated, unable to assess detailed neurological status but previously had normal speech and strength before intubation. laboratory and microbiology Laboratory Tests 09/26/24 05:30 Test 09/26/24 05:30 Range/Units Serum Glucose 17 #*L 74-106 mg/dL Problem List/Assessment/Plan Problem List/Assessment/Plan Neurologic: # Acute metabolic encephalopathy due to hyperammonemia, hypoglycemia and septic shock. Ammonia level: 50. Continue lactulose 30 mg BID . Respiratory: # Acute hypoxic respiratory failure secondary to septic shock and decompensated cirrhosis. #Left pleural effusion due to cirrhosis Patient intubated at 8 am for respiratory distress Patient is on fentanyl and propofol RASS -4 mechanical ventilation RR 30 VT 500 PEEP 5 Patient had left pleural effusion Cardiovascular: #Multiorgan dysfunction # Septic shock due to spontaneous bacterial peritonitis (SBP). #pericardial effusion due to cirrhosis Patient on Levophed, Vasopressin, and Phenylephrine. Goal MAP 60 Continue vasopressors and adjust as needed for hemodynamic stability. Hydrocortisone administered for shock management. Monitor cardiac function and hemodynamics. DNR status confirmed via phone with son (in [place]), discussed with mother and daughter. ECHO: EF 60% [id number] sized pericardial effusion best seen at the apical part of the left atrium. With a chronic fibrotic echodense structure. No evidence of increased intrapericardial pressure was detected. Subcostal view there is echodense mobile solutions architect in her mass seen adjacent to the right ventricular free wall , clinical correlation is required GI: #Decompensated Cirrhosis due to alcohol-related liver disease with a MELD score of 32 with signs of portal hypertension Patient is on liver failure Severe ascites 6l drained before, today 2.6 lt drained: SBP albumin given , GI for further management. # Upper GI bleeding: possible esophageal varices 600 mL of ground emesis suctioned. Continue Protonix and Octreotide infusions GI on the case Blood products ordered RBC, platelets and frozen plasma Endocrine/Metabolic: # Severe metabolic acidosis due to septic shock and liver failure. Bicarbonate drip and flushes to correct acidemia # Hypoglycemia due to acute liver failure. administer IV dextrose as required. Infectious Disease: # septic shock due to SBP. Paracentesis confirmed high WBC in peritoneal fluid. Continue Meropenem and Vancomycin, monitor culture results, and adjust antibiotics based on sensitivities. Renal: # Acute kidney injury vasomotor mediated, possible hepatorenal syndrome . Creatinine increased from 0.81 - 1.4 - 1.6. urinary output 0.2cc/kg/h Nephrology on the case Hematology: # Pancytopenia secondary to liver cirrhosis and hypersplenism . Hgb 7.9, Plt 95 WBC 1.6. Blood products ordered RBC, platelets and frozen plasma General: DNR Status: Confirmed as per discussion with son, mother, and daughter. Continue ICU-level monitoring and care while respecting DNR. No compressions no defibrillation. High chance of short term mortality Critical care spent more than 121 min excluding procedures Case discussed with Dr Osman and Dr Winters PGY2 Plan discussed with: Patient, Daughter, Son, Other (rn) My Orders My Orders Orders - JOHNATHAN MARTÍNEZ Procedure Category Date Status Time Blood Culture RAFA 09/26/24 In Process 09:13 Oxygen By High-Flow RT 09/26/24 Transmitted 08:22 Meropenem 1gm Ivpb PHA 09/26/24 In Process (Merrem 1gm/ Ns) 14:00 Abg W/ Co-Ox RT 09/26/24 Logged 10:15 Gallbladder US 09/26/24 Taken 10:25 D5w 5% (Dextrose 5%) PHA 09/26/24 In Process W/Sodium Bicarb 50m 10:30 Albumin 25% (Albutein) PHA 09/26/24 In Process 14:00 Comprehensive LAB 09/26/24 Logged Metabolic Panel 10:44 Complete Blood Count LAB 09/26/24 Logged 10:44 Sodium Chl 0.9% PHA 09/26/24 In Process (So... W/Octreotide 10:45 Chest Xray 1 View XY 09/26/24 Logged 12:00 Thoracentesis US 09/26/24 Logged 11:03 Urine Bacterial RAFA 09/26/24 Uncollected Culture 11:05 Respiratory Culture RAFA 09/26/24 Uncollected W/ Gs 11:05 Communication Order ORDERS 09/26/24 Transmitted 11:29 * [facility] [employer] Attendant CONS 09/26/24 Transmitted 11:37 Dietary Evaluation Review Comments: F/U assessement in 2-3 days Date of Service: Sep 26, 2024 Billing Provider: DORIE OSMAN MD Common Visit Codes: 42551-ISAOWZUT CARE 30-74 MIN, 88056-EAMLSFQN CARE-EACH +30MIN JOHNATHAN MARTÍNEZ Sep 26, 2024 11:47 DORIE OSMAN MD Sep 27, 2024 12:10
--- NOTE | 2024-09-26 11:47 | DVHNC2 ---
Procedure - Operator Assistant I Cementing Dr Garcia PGY2 Singh PGY1 Rubens Hughes time out was performed. My hands were washed immediately prior to the procedure. I wore a surgical cap, mask with protective eyewear, gown and gloves throughout the procedure. The patient was placed on a equipment monitor phototypesetting including continuous pulse oximetry. Rapid Sequence Intubation was conducted. The patient received 25 mg of ehtomidate for induction and 100 mg of rocuronium for adequate paralysis. Cricoid pressure was maintained from time induction agent was given to time of cuff balloon inflation. Using a glidescope and blade 3 and a size 8.0 endotracheal tube with stylet, the patient was intubated on the 1 attempt. The stylet was removed and cuff balloon was inflated. Appropriate endotracheal tube position was confirmed by direct visualization of vocal cord passage, fogging of the tube, CO2 colormetric indicator and symmetric breath sounds. The tube was secured at 18 cm at the lips. Post intubation chest x-ray was done showing adequate position. JOHNATHAN MARTÍNEZ RESIDENT Sep 26, 2024 11:47
[2024-09-26] MEDS: VANCOMYCIN 1GM/200ML PREMIX 200 ML IV SCH (11:53)
[2024-09-26 11:55] LABS: Base Excess -20.9 mmol/L (-2.0-3.0)
[2024-09-26] MEDS: VASOPRESSIN 20 UNITS in SODIUM CHL 0.9% 99 ML IV SCH ×2 (12:00→21:14)
[2024-09-26] MEDS: PANTOPRAZOLE 40 MG/10 ML VIAL INJ IV ONE (12:10)
--- NOTE | 2024-09-26 12:10 | DVH ---
INDICATION: Pain. TECHNIQUE: Multiple real-time sonographic images of the abdomen were obtained. COMPARISON: US ABDOMEN LIMITED on DOS: 09/26/24 FINDINGS: The liver is heterogeneous in echogenicity. The liver measures 14cm. No intrahepatic bilia ry ductal dilatation is noted. Small ascites. The gallbladder wall measures 0.3 cm and is unremarkable. gallbladder sludge is present.. The com mon duct measures 0.5 cm and is unremarkable. No pericholecystic fluid is noted. The right kidney measures 11cm. No hydronephrosis. The pancreas is not well visualized due to obscuration from bowel gas. The visualized portions of the IVC and aorta are grossly unremarkable. IMPRESSION: Gallbladder sludge is present. Hepatic steatosis. Small volume ascites.
[2024-09-26] MEDS: DEXTROSE 10% 1,000 ML IV ONE ×2 (12:29→12:47)
[2024-09-26] MEDS: OCTREOTIDE ACETATE 100 MCG in SODIUM CHL 0.9% 50 ML IV ONE (12:29)
[2024-09-26] MEDS: ACCU-CHEK COMFORT CURVE STRIP VI SCH ×2 (12:30→15:01)
[2024-09-26] MEDS: LACTULOSE 20Gm/30ML SOLN PO SCH (12:30)
[2024-09-26] MEDS: OCTREOTIDE ACETATE 500 MCG in SODIUM CHL 0.9% 99 ML IV SCH ×2 (12:31→12:58)
[2024-09-26] MEDS: PANTOPRAZOLE 40mg/50ML NS AE 50 ML IV SCH (12:32)
--- NOTE | 2024-09-26 12:34 | DVH ---
US PARACENTESIS, HISTORY: ASCITES PROCEDURE: Informed consent was obtained. The patient was placed in supine position. A limited locali zation ultrasound of the abdomen was obtained, and the skin site over the largest pocket of fluid was marked and entry site was prepped with chlorhexidine which was allowed to dry and draped in the usua l sterile fashion. Time out was performed. Following administration of 1% lidocaine local anesthetic, a 5 Panamanian centesis needle catheter was percutaneously inserted into the peritoneal collection until fluid was aspirated. The catheter was advanced into the fluid collection and the needle removed. Abo ut 2600 cc of fluid was aspirated and specimen sent for appropriate cultures/cytology/cultures and cy tology. The catheter was then removed and a sterile dressing applied. No immediate complication was identified. FINDINGS: Limited ultrasound imaging demonstrates mild ascites. Aspirated fluid was clear and serous. IMPRESSION: US-guided paracentesis with 2.6L removed.
[2024-09-26 12:45] LABS: Alanine Aminotransferase 41 U/L (7-40); Albumin 1.6 g/dL (3.2-4.8); Alkaline Phosphatase 67 U/L (46-116); Anion Gap 22 (5-15); Aspartate Aminotransferase 226 U/L (13-40); BUN/Creatinine Ratio 11.4 (10.0-20.0); Blood Urea Nitrogen 19 mg/dL (9-23); Calcium 7.8 mg/dL (8.7-10.4); Carbon Dioxide 12 mmol/L (20-31); Chloride 100 mmol/L (98-107); Potassium 4.1 mmol/L (3.5-5.1); Sodium 134 mmol/L (136-145)
[2024-09-26 12:46] LABS: Bilirubin, Total 8.9 mg/dL (0.2-1.0); Total Protein 6.2 g/dL (5.7-8.2)
[2024-09-26] MEDS: MEROPENEM 1GM IVPB 50 ML IV SCH (12:47)
[2024-09-26 12:49] LABS: Hematocrit 26.9 % (41.0-53.0); Hemoglobin 7.9 g/dL (13.5-17.5); Mean Corpuscular Hemoglobin 40.6 pg (28.0-32.0); Mean Corpuscular Hgb Conc. 29.4 g/dL (32.0-36.0); Mean Corpuscular Volume 138.3 fL (80.0-100.0); Platelet Count (auto) 95 10^3/uL (140-450); Red Blood Cells 1.95 10^6/uL (4.5-5.90); Red Cell Distribution Width 19.5 % (11.8-14.3)
[2024-09-26 12:50] LABS: Glucose 20 mg/dL (74-106)
[2024-09-26 12:52] LABS: Basophils % (manual) 0 (0.0-2.0); Blast Cells 0; Myelocytes % 0; Promyelocytes % 0; Reactive Lymphocytes 0; White Blood Cell 1.6 10^3/uL (4.4-10.8)
[2024-09-26 12:56] LABS: Body Fluid Polymorphonuclear 89 % (0-25); Body Fluid Red Blood Cells 1228 CUMM (0-2000); Body Fluid White Blood Cells 4819 CUMM (0-200)
[2024-09-26] MEDS: PROPOFOL 100 ML IV ONE (13:00)
[2024-09-26] MEDS: PROPOFOL 100 ML IV SCH (13:14)
[2024-09-26 13:18] LABS: Band Neutrophils % (manual) 15; Eosinophils % (manual) 4 (0-7); Lymphocytes % (manual) 19 (10.0-50.0); Metamyelocytes % 2; Monocytes % (manual) 6 (0-12)
[2024-09-26 13:19] LABS: Anisocytosis Slight; Macrocytosis Marked; Platelet Estimate Decreased
[2024-09-26 13:23] LABS: Base Excess -19.2 mmol/L (-2.0-3.0)
[2024-09-26 13:26] LABS: Hepatitis B Surface Antigen Negative (Negative)
[2024-09-26 13:46] LABS: Hepatitis A Ab IgM Negative
[2024-09-26 13:47] LABS: Hepatitis B Core IgM Negative; Hepatitis C Antibody Negative (Negative)
[2024-09-26] MEDS: VANCOMYCIN 1GM/200ML PREMIX 200 ML IV ONE (14:25)
--- NOTE | 2024-09-26 14:28 | DVH ---
CLINICAL INFORMATION: 54 years old, Male; post intubation. TECHNIQUE: Single AP portable chest radiograph was obtained. COMPARISON: XY CHEST PORTABLE on DOS: 09/26/24, XY CHEST PORTABLE on DOS: 09/25/24 FINDINGS: Distal tip of the endotracheal tube is approximately 5 cm above the level of the jan. Enteric tube reaches the stomach. Stable satisfactory positioning of the right internal jugular central venous ca theter. Bilateral airspace opacities are unchanged. Small to moderate left pleural effusion with over lying atelectasis is unchanged. Prominence of the pulmonary vasculature, similar to the prior exam. IMPRESSION: 1. Satisfactory positioning of the endotracheal tube, enteric tube, and right internal jugular centra l venous catheter. 2. No other significant interval change as detailed above.
[2024-09-26] MEDS: SODIUM BICARB 50mEq/50ml Vial 150 ML in D5W 5% 1,000 ML IV SCH (14:30)
[2024-09-26] MEDS: NOREPINEPHRINE BITARTRATE 32 MG in SODIUM CHL 0.9% 218 ML IV SCH ×2 (14:38→21:13)
[2024-09-26] MEDS: PHENYLEPHRINE INJ 80 MG in SODIUM CHL 0.9% 242 ML IV SCH ×2 (14:44→21:13)
[2024-09-26] MEDS: DEXTROSE 10% 1,000 ML IV SCH ×2 (15:03→20:00)
[2024-09-26] MEDS: ALBUMIN 25% 100 ML IV SCH (15:08)
[2024-09-26 15:55] LABS: Base Excess -20.3 mmol/L (-2.0-3.0)
--- NOTE | 2024-09-26 16:18 | DVHSR ---
APPROVED REPORT EXAM: LIMITED Two-dimensional and M-mode echocardiogram with Doppler and color Doppler. Blood Pressure: 119/64 mmHg INDICATION Rule out CHF RISK FACTORS Height: 5' 10", Weight: 210 DIMENSIONS LVDd4.4 (3.8-5.7cm)LA (2D) (1.9-4.0cm)Aortic Root (2.0-3.7cm) LVDs3.3 (2.5-4.0cm)LA (MM) (1.9-4.0cm)Aortic Cusp Exc (1.5-2.0cm) EF (%) 50.0 (55-70%)Rt. Atrium (1.9-4.0cm)Asc. Aorta cm IVSd1.2 (0.7-1.1cm)RV (D) (1.8-2.4cm) PWd1.1 (0.7-1.1cm) Mitral Valve MitralMitral Stenosis E wave1.10m/sMV Mean GR.mmHg A wave1.30m/sMV Peak GR.mmHg E/A ratio0.82D MVAcm2 Tricuspid Valve TR Velocity2.40m/s [id number] Other Information Quality : Technically LimitedRhythm : Tachycardia Technically limited study due to body habitus and rhythm. Conclusion Normal left ventricular size and dimension. Hyperdynamic left ventricular estimated ejection fractio n of 60%. %. There is a grade 1 diastolic dysfunction. Normal right ventricular size and dimension. Normal right ventricular systolic function. Normal biatrial size and dimension. Normal aortic valve structure and function. Normal mitral valve structure and function. Normal tricuspid valve structure and function. The pulmonary valve is grossly normal. [id number] sized pericardial effusion best seen at the apical part of the left atrium. With a chronic fibrotic echodense structure. No evidence of increased intrapericardial pressure was detecte d. Subcostal view there is echodense superintendent factory in her mass seen adjacent to the right ventricular free wall , clinical correlation is required
[2024-09-26] MEDS ORDERED: PHENYLEPHRINE INJ 80 MG in SODIUM CHL 0.9% 242 ML IV SCH (17:30)
[2024-09-26] MEDS: HYDROCORTISONE SOD SUCC 100 MG/2ML INJ VIAL IV SCH (17:40)
[2024-09-26] MEDS ORDERED: FOLIC ACID 1 MG, MULTIPLE VITAMIN 10 ML, MAGNESIUM SULF SDV 50% 8 MEQ, THIAMINE INJ 100... INJ SCH (18:00)
[2024-09-26] MEDS ORDERED: DOPamine 1600MCG/ML D5W 250 ML IV SCH (18:15)
[2024-09-26] MEDS: DEXTROSE (50%) 50ML SYRG IV PRN (18:26)
[2024-09-26] MEDS ORDERED: EPINEPHrine HCL 250 ML IV SCH (19:00)
[2024-09-26 20:00] LABS: Base Excess -22.3 mmol/L (-2.0-3.0)
--- NOTE | 2024-09-26 20:05 | DVHINCON2 ---
Date of service: Sep 26, [address] Art Reason for Consultation Acute liver failure and coffee ground via NGT History of Present Illness This 54-year-old male presents in the ED via EMS with a chief complaint of shortness of breath. The patient is transferred from [facility]. The patient is alert and oriented states started having shortness of breath yesterday and was found hypoxia at 70%. Patient reports history of COPD, alcohol liver cirrhosis, ascites and states had a paracentesis yesterday and 6 L was removed. Other past medical history of DVT on left lower extremity currently on Eliquis, anxiety, tobacco use, and ex alcohol abuse. Past Medical History Seizures Cirrhosis ETOH abuse Family History: Alcoholism Arthritis G8 MOTHER Cerebrovascular accident (CVA) G8 MOTHER Allergies: Coded Allergies: No Known Drug Allergy (Verified Allergy, Unknown, 09/25/24) Current Medications Current Medications Medications (Trade) Dose Ordered Sig/Marii Route PRN Reason Start Time Stop Time Status Last Admin Nicotine (Nicoderm 7MG/ 24HR) 1 patch DAILY TD 09/26/24 10:00 Cancel Furosemide (Lasix Injection) 20 mg DAILY IV 09/26/24 10:00 Potassium Chloride (Klor-Con Tablet) 20 meq DAILY PO 09/26/24 10:00 09/26/24 10:21 DC Enoxaparin Sodium (Lovenox) 40 mg DAILY SC 09/26/24 10:00 09/26/24 10:21 DC Levalbuterol HCl (Xopenex Medneb) 1.25 mg Q6HR NEB 09/26/24 00:00 09/26/24 10:22 DC 09/26/24 06:11 Azithromycin 250 ml @ 125 mls/hr DAILY@2100 IV 09/26/24 21:00 09/26/24 07:26 DC Ceftriaxone Sodium 50 ml @ 100 mls/hr DAILY@09 IV 09/26/24 09:00 09/26/24 07:26 DC Diltiazem HCl 100 ml @ 5 mls/hr Q20H IV 09/26/24 03:45 09/26/24 10:22 DC 09/26/24 05:02 Chlordiazepoxide HCl (Librium Capsule) 50 mg Q8H PO 09/26/24 07:00 09/26/24 10:22 DC Chlordiazepoxide HCl (Librium Capsule) 50 mg Q12HR PO 09/27/24 10:00 09/26/24 10:22 DC Chlordiazepoxide HCl (Librium Capsule) 25 mg Q12HR PO 09/28/24 10:00 09/26/24 10:22 DC Chlordiazepoxide HCl (Librium Capsule) 25 mg QAM PO 09/29/24 07:00 09/26/24 10:22 DC Folic Acid 1 mg/ Multivitamins 10 ml/Magnesium Sulfate 8 meq/ Thiamine HCl 100 mg/Dextrose 1,013.2 ml @ 125.001 mls/hr DAILY@1800 INJ 09/26/24 18:00 09/26/24 17:21 DC Diagnostic Test (Pha) (Accu-Chek Comfort Curve T) 1 strip Q4HR 09/26/24 10:00 09/26/24 18:16 DC 09/26/24 14:00 Piperacillin Sod/ Tazobactam Sod 100 ml @ 25 mls/hr Q8HR IV 09/26/24 07:30 Cancel Vancomycin HCl 0 ml @ 0 mls/hr UD IV 09/26/24 07:30 Lactulose 30 ml BID PO 09/26/24 10:00 09/26/24 19:49 DC 09/26/24 12:30 Vancomycin HCl 200 ml @ 200 mls/hr Q1H IV 09/26/24 08:30 09/26/24 10:29 DC 09/26/24 13:20 Meropenem 50 ml @ 17 mls/hr Q8HR IV 09/26/24 14:00 09/26/24 12:47 Norepinephrine Bitartrate 250 ml @ 3.75 mls/hr Q24H IV 09/26/24 08:30 UNV Midazolam HCl 50 ml @ 1 mls/hr Q24H IV 09/26/24 09:00 09/26/24 17:23 Fentanyl Citrate 250 ml @ 2.5 mls/hr Q24H IV 09/26/24 09:00 09/26/24 10:46 Norepinephrine Bitartrate 250 ml @ 3.75 mls/hr Q24H IV 09/26/24 09:00 09/26/24 14:23 DC 09/26/24 14:13 Pantoprazole Sodium 50 ml @ 10 mls/hr Q5H IV 09/26/24 09:00 09/26/24 17:39 Sodium Bicarbonate 100 ml/Dextrose 1,100 ml @ 100 mls/hr Q11H IV 09/26/24 10:30 09/26/24 14:47 DC 09/26/24 11:44 Albumin Human 100 ml @ 100 mls/hr Q8H IV 09/26/24 14:00 09/27/24 06:59 09/26/24 15:08 Octreotide Acetate 500 mcg/ Sodium Chloride 100 ml @ 10 mls/hr Q10H IV 09/26/24 10:45 09/26/24 12:33 DC 09/26/24 12:31 Vasopressin 20 units/Sodium Chloride 100 ml @ 9 mls/hr Q11H7M IV 09/26/24 11:15 09/26/24 12:00 Octreotide Acetate 500 mcg/ Sodium Chloride 100 ml @ 10 mls/hr Q10H IV 09/26/24 11:30 09/26/24 12:58 Hydrocortisone Sodium Succinate (Solu-CORTEF INJECTION) 50 mg Q6HR IV 09/26/24 18:00 09/26/24 17:40 Propofol 100 ml @ 3.024 mls/ hr Q24H IV 09/26/24 12:45 09/26/24 13:14 Norepinephrine Bitartrate 32 mg/ Sodium Chloride 250 ml @ 0.938 mls/ hr Q24H IV 09/26/24 14:15 09/26/24 14:38 Phenylephrine HCl 80 mg/Sodium Chloride 250 ml @ 7.5 mls/hr Q24H IV 09/26/24 14:30 09/26/24 14:44 Diagnostic Test (Pha) (Accu-Chek Comfort Curve T) 1 strip Q1HR 09/26/24 15:00 09/26/24 19:28 Sodium Bicarbonate 150 ml/Dextrose 1,150 ml @ 75 mls/hr [id number] IV 09/26/24 14:30 09/26/24 14:30 Dextrose 1,000 ml @ 25 mls/hr Q24H IV 09/26/24 15:00 09/26/24 19:49 DC 09/26/24 15:03 Vancomycin HCl 200 ml @ 200 mls/hr Q12H IV 09/27/24 00:00 Phenylephrine HCl 80 mg/Sodium Chloride 250 ml @ 7.5 mls/hr Q24H IV 09/26/24 17:30 UNV Dextrose 50 ml ONCE PRN IV Blood Sugar LESS THAN 60 09/26/24 18:15 09/26/24 18:26 Dopamine HCl/ Dextrose 250 ml @ 18.9 mls/hr [id number] IV 09/26/24 18:15 Epinephrine HCl 250 ml @ 7.5 mls/hr Q24H IV 09/26/24 19:00 Lactulose 300 ml Q6HR AL 09/27/24 00:00 UNV Dextrose 1,000 ml @ 50 mls/hr Q20H IV 09/26/24 20:00 UNV Vital Signs Vital Signs Date Time Temp Pulse Resp B/P (MAP) Pulse Ox O2 Delivery O2 Flow Rate FiO2 09/26/24 18:37 122 30 88/47 (61) 89 09/26/24 18:08 85 09/26/24 18:00 Mechanical Ventilator+ 09/26/24 08:30 50.0 09/26/24 04:30 100.4 100.4 Physical Exam General Appearance:Intubated sedated HEENT: Atraumatic, PERRLA; mild pallor scleral icterus Respiratory: Decreased breath sounds at bases Normal air movement Cardiovascular: Regular rate, Normal S1, Normal S2 Abdominal: Normal bowel sounds, Other (Ascites) Extremities: No clubbing, No cyanosis, Other (Bilateral lower extremity edema) Skin: No rashes, No breakdown Neuro: Normal gait, Normal speech, Strength at 5/5 X4 ext, Normal tone Psych/Mental Status: Mental status NL Labs/Diagnostic Data Labs Test 09/26/24 18:19 09/26/24 15:43 09/26/24 12:16 09/26/24 11:30 Range/Units POC Glucose 133 H 70-106 mg/dl Blood Gas Specimen Type Arterial Blood Gas Sample Site Right radial Blood Gas Patient Temperature 37.0 Arterial Blood Date Drawn [id number] Arterial Blood pH 6.979 *L 7.350-7.450 Arterial Blood Partial Pressure CO2 44.8 35.0-48.0 mmHg Arterial Blood Partial Pressure O2 80.0 L 83.0-108.0 mmHg Arterial Blood HCO3 10.3 L 21.0-28.0 mmol/L Arterial Blood Oxygen Saturation 86.5 L 94.0-98.0 % Arterial Blood Base Excess -20.3 L -2.0-3.0 mmol/L Arterial Blood Oxyhemoglobin 85.9 L 94.0-98.0 % Arterial Blood Carboxyhemoglobin 0.3 L 0.5-1.5 % Arterial Blood Methemoglobin 0.4 0.0-1.5 % Maximiliano Test Modified Blood Gas Total Hemoglobin 9.00 L 13.5-17.5 g/dL Blood Gas Set Respiration Rate 26.0 Blood Gas Modality Vent - ac FiO2 % 100.0 Blood Gas Tidal Volume 500.0 Blood Gas PEEP or CPAP 5.0 Blood Gas Critical Value Read Back Yes Blood Gas Notified Whom Dr. anastacia metzger Blood Gas Notified Time [id number] Blood Gas Notified By Carpenter Assistant melanie ricketts White Blood Count 1.6 *L 4.4-10.8 10^3/uL Red Blood Count 1.95 L 4.5-5.90 10^6/uL Hemoglobin 7.9 L 13.5-17.5 g/dL Hematocrit 26.9 L 41.0-53.0 % Mean Corpuscular Volume 138.3 #H 80.0-100.0 fL Mean Corpuscular Hemoglobin 40.6 H 28.0-32.0 pg Mean Corpuscular Hemoglobin Concent 29.4 L 32.0-36.0 g/dL Red Cell Distribution Width 19.5 H 11.8-14.3 % Platelet Count 95 L 140-450 10^3/uL Mean Platelet Volume 8.1 6.9-10.8 fL Neutrophils (%) (Auto) 37.0-80.0 % Lymphocytes (%) (Auto) 10.0-50.0 % Monocytes (%) (Auto) 0.0-12.0 % Basophils (%) (Auto) 0.0-2.0 % Neutrophils # (Auto) 1.6-8.6 10 ^3/uL Lymphocytes # (Auto) 0.4-5.4 10 ^3/uL Monocytes # (Auto) 0-1.3 10 ^3/uL Differential Total Cells Counted 100.0 100 Neutrophils % (Manual) 54 37.0-80.0 Band Neutrophils % (Manual) 15 Lymphocytes % (Manual) 19 10.0-50.0 Monocytes % (Manual) 6 0-12 Eosinophils % (Manual) 4 0-7 Basophils % (Manual) 0 0.0-2.0 Metamyelocytes % (manual) 2 Myelocytes % (Manual) 0 Promyelocytes % (Manual) 0 Blast Cells % (Manual) 0 Reactive Lymphocytes 0 Platelet Estimate Decreased Anisocytosis (manual) Slight Macrocytosis Marked Sodium Level 134 L 136-145 mmol/L Potassium Level 4.1 3.5-5.1 mmol/L Chloride Level 100 98-107 mmol/L Carbon Dioxide Level 12 L 20-31 mmol/L Anion Gap 22 H 5-15 Blood Urea Nitrogen 19 9-23 mg/dL Creatinine 1.66 H 0.700-1.30 mg/dL Glomerular Filtration Rate Calc 49 >90 mL/min BUN/Creatinine Ratio 11.4 10.0-20.0 Serum Glucose 20 *L 74-106 mg/dL Calcium Level 7.8 L 8.7-10.4 mg/dL Total Bilirubin 8.9 H 0.2-1.0 mg/dL Aspartate Amino Transferase (AST) 226 H 13-40 U/L Alanine Aminotransferase (ALT) 41 H 7-40 U/L Alkaline Phosphatase 67 46-116 U/L Total Protein 6.2 5.7-8.2 g/dL Albumin 1.6 L 3.2-4.8 g/dL Body Fluid Source Peritoneal fluid Body Fluid pH 7.0 Body Fluid WBC (Manual) 4819 H 0-200 CUMM Body Fluid RBC (Manual) 1228 0-2000 CUMM Body Fluid Mononuclear Cells 11 % Body Fluid Polymorphonuclear Cells 89 H 0-25 % Test 09/26/24 10:13 09/26/24 07:30 09/26/24 05:30 09/26/24 03:47 Range/Units Lactic Acid Level 15.2 *H 0.4-2.0 mmol/L Urine Color Yellow Yellow Urine Clarity Hazy H Clear Urine pH 5.5 5.0-9.0 Urine Specific [place] 1.016 1.001-1.035 Urine Protein Negative Negative Urine Ketones Negative Negative Urine Blood Negative Negative /uL Urine Nitrite Negative Negative Urine Bilirubin 1+ Negative Urine Urobilinogen 8 H Negative mg/dL Urine Leukocyte Esterase Negative Negative /uL Urine RBC <1 0 - 3 /hpf Urine WBC None seen 0 - 3 /hpf Urine Squamous Epithelial Cells None seen <5 /hpf Urine Bacteria None seen None Seen /hpf Urine Glucose Normal Normal mg/dL Blood Gas Liter Flow 5.00 Urine Opiates Screen Pos NEGATIVE Urine Fentanyl Screen Neg NEGATIVE Urine Barbiturates Screen Neg NEGATIVE Urine Phencyclidine Screen Neg NEGATIVE Urine Amphetamines Screen Neg NEGATIVE Urine Benzodiazepines Screen Neg NEGATIVE Urine Cocaine Screen Neg NEGATIVE Urine Cannabinoids Screen Neg NEGATIVE Prothrombin Time 25.8 H 9.3-11.8 sec Prothrombin Time INR 2.61 H 0.9-1.15 Activated Partial Thromboplast Time 40.6 H 24.5-34.5 SEC D-Dimer, Quantitative 14.01 H 0.0-0.49 mg/L FEU Ammonia 78 H 11-32 umol/L Troponin I High Sensitivity 32 </=54 ng/L Plasma/Serum Blood Alcohol < 3.0 <10 mg/dL Hepatitis A IgM Antibody Negative Hepatitis B Surface Antigen Negative Negative Hepatitis B Core IgM Antibody Negative Hepatitis C Antibody Negative Negative SARS-CoV-2 Antigen (Rapid) Negative NEGATIVE Test 09/25/24 01:00 Range/Units Eosinophils (%) (Auto) 0.0 0.0-7.0 % Eosinophils # (Auto) 0 0-0.8 10 ^3/uL Basophils # (Auto) 0 0-0.2 10 ^3/uL Nucleated Red Blood Cells 0.0 % Hemoglobin A1c < 3.8 <5.7 % A1C B-Type Natriuretic Peptide 196.88 0-100 pg/mL Triglycerides Level 89 < 150 mg/dL Cholesterol Level 108 < 200 mg/dL LDL Cholesterol 39 < 100 mg/dL HDL Cholesterol 11 L 40-59 mg/dL Microbiology Date/Time Source Procedure Growth Status 09/26/24 04:30 Nose MRSA Screen - Final Complete Paracentesis IMPRESSION: US-guided paracentesis with 2.6L removed. GB USG IMPRESSION: Gallbladder sludge is present. Hepatic steatosis. Small volume ascites. Problems(with codes): (1) Coffee ground emesis (2) Spontaneous bacterial peritonitis (3) Shortness of breath (4) Cirrhosis (5) Acute exacerbation of chronic heart failure (6) Pancytopenia (7) Lactic acidosis (8) Alcoholic steatohepatitis (9) Elevated liver enzymes Plan/Recommendation PLAN Pt is critically ill Continue conservative Rx IV ABX for SBP Transfuse 1 unit PRBC one unit platelets and one FFP Maddrey discrimitant fx 72; would benefit from steroids IV Protonix drip and IV Octerotide Pt is also having hematuria Monitor labs Plan discussed with: Other (ICU Nurse and Dr Johnson) LARA CARPENTER MD Sep 26, 2024 20:05
[2024-09-26] MEDS ORDERED: AZITHROMYCIN 500MG/ 250ML 250 ML IV SCH (21:00)
[2024-09-26] MEDS: DOPamine 1600MCG/ML D5W 250 ML IV SCH (21:12)
[2024-09-26] MEDS: EPINEPHrine HCL 250 ML IV SCH (21:12)
[2024-09-26 23:04] LABS: Base Excess -23.1 mmol/L (-2.0-3.0)
[2024-09-27] VITALS (51 sets, daily range): BP systolic 71–97; BP diastolic 40–51; PULSE 73–135; RESP 29–31; TEMP 97–98.8; O2SAT 56–99
[2024-09-27] MEDS: LACTULOSE 10g/15ml SOLN 473ML PR SCH
[2024-09-27] MEDS: VANCOMYCIN 1GM/200ML PREMIX 200 ML IV SCH (00:40)
[2024-09-27] MEDS: LACTULOSE 20Gm/30ML SOLN PO PRN (00:55)
[2024-09-27 03:31] LABS: Hematocrit 29.6 % (41.0-53.0); Hemoglobin 8.9 g/dL (13.5-17.5); Mean Corpuscular Hemoglobin 37.9 pg (28.0-32.0); Mean Corpuscular Hgb Conc. 29.9 g/dL (32.0-36.0); Mean Corpuscular Volume 126.9 fL (80.0-100.0); Platelet Count (auto) 53 10^3/uL (140-450); Red Blood Cells 2.33 10^6/uL (4.5-5.90); White Blood Cell 8.8 10^3/uL (4.4-10.8)
[2024-09-27 03:49] LABS: Alanine Aminotransferase 143 U/L (7-40); Albumin 1.9 g/dL (3.2-4.8); Alkaline Phosphatase 64 U/L (46-116); Anion Gap 26 (5-15); Blood Urea Nitrogen 18 mg/dL (9-23); Calcium 7.9 mg/dL (8.7-10.4); Carbon Dioxide 11 mmol/L (20-31); Chloride 97 mmol/L (98-107); Glucose 71 mg/dL (74-106); Sodium 134 mmol/L (136-145)
[2024-09-27 03:50] LABS: Bilirubin, Total 10.1 mg/dL (0.2-1.0); Total Protein 5.8 g/dL (5.7-8.2)
[2024-09-27 03:54] LABS: BUN/Creatinine Ratio 8.3 (10.0-20.0)
[2024-09-27 03:55] LABS: Red Cell Distribution Width 23.6 % (11.8-14.3)
[2024-09-27 03:57] LABS: Basophils % (manual) 0 (0.0-2.0); Blast Cells 0; Eosinophils % (manual) 0 (0-7); Promyelocytes % 0; Reactive Lymphocytes 0
[2024-09-27 04:00] LABS: Aspartate Aminotransferase 1533 U/L (13-40)
--- NOTE | 2024-09-27 04:47 | DVH ---
CHEST RADIOGRAPH Indication:dyspnea Technique: Single frontal view of the chest was obtained Comparison: XY CHEST XRAY 1 VIEW on DOS: 09/26/24 FINDINGS: Lines and Tubes: The endotracheal tube terminates 6.5 cm above the jan. Right central venous cath eter terminates in the superior vena cava. Enteric tube courses below the left hemidiaphragm and term inates in the stomach. Lungs: Bilateral opacities. Pleura: Bilateral pleural effusions. No pneumothorax. Cardiomediastinal contours: Stable cardiovascular silhouette. Bones: No acute osseous abnormality. IMPRESSION: 1. Bilateral pleural effusions and bilateral opacities which may reflect pneumonia or edema.
[2024-09-27 06:00] LABS: Anisocytosis Slight; Band Neutrophils % (manual) 22; Lymphocytes % (manual) 10 (10.0-50.0); Macrocytosis Marked; Metamyelocytes % 13; Monocytes % (manual) 7 (0-12); Myelocytes % 4; Platelet Estimate Decreased
[2024-09-27 06:01] LABS: Large Platelets FEW
--- NOTE | 2024-09-27 08:02 | DVH ---
Exam: US CHEST ULTRASOUND Date: 09/27/2024 07:37 AM Clinical History: FLUID CHECK FOR POSSIBLE THORACENTESIS Comparison: None Technique: Targeted sonographic evaluation of the soft tissues of the chest was obtained utilizing grayscale and color Doppler imaging. Findings: There are small pleural effusions in the lower right and left hemithorax. IMPRESSION: 1. Small pleural effusions in the lower right and left hemithorax. HS:Y
--- NOTE | 2024-09-27 08:26 | DVHDS2 ---
Summary Date of Admission Sep 25, 2024 at 10:13 Date and Time of Expiration: Sep 27, 2024 08:23 Reason for Admission: multi-organ failure secondary to septic shock for SBP in the context of decompensated liver cirrhosis Labs/Diagnostic Data: Laboratory Results Test 09/27/24 08:13 09/27/24 03:12 09/26/24 22:06 09/26/24 11:30 White Blood Count 8.8 10^3/uL (4.4-10.8) Red Blood Count 2.33 10^6/uL (4.5-5.90) Hemoglobin 8.9 g/dL (13.5-17.5) Hematocrit 29.6 % (41.0-53.0) Mean Corpuscular Volume 126.9 fL (80.0-100.0) Mean Corpuscular Hemoglobin 37.9 pg (28.0-32.0) Mean Corpuscular Hemoglobin Concent 29.9 g/dL (32.0-36.0) Red Cell Distribution Width 23.6 % (11.8-14.3) Platelet Count 53 10^3/uL (140-450) Mean Platelet Volume 8.8 fL (6.9-10.8) Neutrophils (%) (Auto) % (37.0-80.0) Lymphocytes (%) (Auto) % (10.0-50.0) Monocytes (%) (Auto) % (0.0-12.0) Basophils (%) (Auto) % (0.0-2.0) Neutrophils # (Auto) 10 ^3/uL (1.6-8.6) Lymphocytes # (Auto) 10 ^3/uL (0.4-5.4) Monocytes # (Auto) 10 ^3/uL (0-1.3) Differential Total Cells Counted 100.0 (100) Neutrophils % (Manual) 44 (37.0-80.0) Band Neutrophils % (Manual) 22 Lymphocytes % (Manual) 10 (10.0-50.0) Monocytes % (Manual) 7 (0-12) Eosinophils % (Manual) 0 (0-7) Basophils % (Manual) 0 (0.0-2.0) Metamyelocytes % (manual) 13 Myelocytes % (Manual) 4 Promyelocytes % (Manual) 0 Blast Cells % (Manual) 0 Nucleated Red Blood Cells 7.0 % Reactive Lymphocytes 0 Platelet Estimate Decreased Large Platelets Few Anisocytosis (manual) Slight Macrocytosis Marked [place] Cells Moderate Sodium Level 134 mmol/L (136-145) Potassium Level 4.0 mmol/L (3.5-5.1) Chloride Level 97 mmol/L (98-107) Carbon Dioxide Level 11 mmol/L (20-31) Anion Gap 26 (5-15) Blood Urea Nitrogen 18 mg/dL (9-23) Creatinine 2.16 mg/dL (0.700-1.30) Glomerular Filtration Rate Calc 36 mL/min (>90) BUN/Creatinine Ratio 8.3 (10.0-20.0) Serum Glucose 71 mg/dL (74-106) Calcium Level 7.9 mg/dL (8.7-10.4) Total Bilirubin 10.1 mg/dL (0.2-1.0) Aspartate Amino Transferase (AST) 1533 U/L (13-40) Alanine Aminotransferase (ALT) 143 U/L (7-40) Alkaline Phosphatase 64 U/L (46-116) Ammonia 196 umol/L (11-32) Total Protein 5.8 g/dL (5.7-8.2) Albumin 1.9 g/dL (3.2-4.8) Vancomycin Level Trough 34.7 ug/mL (5-10) Blood Gas Specimen Type Arterial Blood Gas Sample Site Right radial Blood Gas Patient Temperature 37.0 Arterial Blood Date Drawn [id number] Arterial Blood pH 6.916 (7.350-7.450) Arterial Blood Partial Pressure CO2 42.3 mmHg (35.0-48.0) Arterial Blood Partial Pressure O2 112.6 mmHg (83.0-108.0) Arterial Blood HCO3 8.4 mmol/L (21.0-28.0) Arterial Blood Oxygen Saturation 96.0 % (94.0-98.0) Arterial Blood Base Excess -23.1 mmol/L (-2.0-3.0) Arterial Blood Oxyhemoglobin 95.0 % (94.0-98.0) Arterial Blood Carboxyhemoglobin 0.8 % (0.5-1.5) Arterial Blood Methemoglobin 0.2 % (0.0-1.5) Maximiliano Test Modified Blood Gas Total Hemoglobin 9.20 g/dL (13.5-17.5) Blood Gas Set Respiration Rate 30.0 Blood Gas Modality Vent - ac Blood Gas Spontaneous Rate 30 FiO2 % 95.0 Blood Gas Tidal Volume 500.0 Blood Gas PEEP or CPAP 5.0 Blood Gas Critical Value Read Back yes Blood Gas Notified Whom Dr. jodi norwood Blood Gas Notified Time [id number] Blood Gas Notified By Zach godfrey sed special education teacher Body Fluid Source Peritoneal fluid Body Fluid pH 7.0 Body Fluid WBC (Manual) 4819 CUMM (0-200) Body Fluid RBC (Manual) 1228 CUMM (0-2000) Body Fluid Mononuclear Cells 11 % Body Fluid Polymorphonuclear Cells 89 % (0-25) Test 09/26/24 10:13 09/26/24 07:30 09/26/24 05:30 09/26/24 03:47 Lactic Acid Level 15.2 mmol/L (0.4-2.0) Urine Color Yellow (Yellow) Urine Clarity Hazy (Clear) Urine pH 5.5 (5.0-9.0) Urine Specific [place] 1.016 (1.001-1.035) Urine Protein Negative (Negative) Urine Ketones Negative (Negative) Urine Blood Negative /uL (Negative) Urine Nitrite Negative (Negative) Urine Bilirubin 1+ (Negative) Urine Urobilinogen 8 mg/dL (Negative) Urine Leukocyte Esterase Negative /uL (Negative) Urine RBC <1 /hpf (0 - 3) Urine WBC None seen /hpf (0 - 3) Urine Squamous Epithelial Cells None seen /hpf (<5) Urine Bacteria None seen /hpf (None Seen) Urine Glucose Normal mg/dL (Normal) Blood Gas Liter Flow 5.00 Urine Opiates Screen Pos (NEGATIVE) Urine Fentanyl Screen Neg (NEGATIVE) Urine Barbiturates Screen Neg (NEGATIVE) Urine Phencyclidine Screen Neg (NEGATIVE) Urine Amphetamines Screen Neg (NEGATIVE) Urine Benzodiazepines Screen Neg (NEGATIVE) Urine Cocaine Screen Neg (NEGATIVE) Urine Cannabinoids Screen Neg (NEGATIVE) Prothrombin Time 25.8 sec (9.3-11.8) Prothrombin Time INR 2.61 (0.9-1.15) Activated Partial Thromboplast Time 40.6 SEC (24.5-34.5) D-Dimer, Quantitative 14.01 mg/L FEU (0.0-0.49) Troponin I High Sensitivity 32 ng/L (</=54) Plasma/Serum Blood Alcohol < 3.0 mg/dL (<10) Hepatitis A IgM Antibody Negative Hepatitis B Surface Antigen Negative (Negative) Hepatitis B Core IgM Antibody Negative Hepatitis C Antibody Negative (Negative) SARS-CoV-2 Antigen (Rapid) Negative (NEGATIVE) Test 09/25/24 01:00 Eosinophils (%) (Auto) 0.0 % (0.0-7.0) Eosinophils # (Auto) 0 10 ^3/uL (0-0.8) Basophils # (Auto) 0 10 ^3/uL (0-0.2) Hemoglobin A1c < 3.8 % A1C (<5.7) B-Type Natriuretic Peptide 196.88 pg/mL (0-100) Triglycerides Level 89 mg/dL (< 150) Cholesterol Level 108 mg/dL (< 200) LDL Cholesterol 39 mg/dL (< 100) HDL Cholesterol 11 mg/dL (40-59) Other Laboratory Tests 09/27/24 03:12 Brief Hx & Hospital Course: A 54-year-old male with a history of COPD, alcohol-induced liver cirrhosis with ascites was admitted to the ICU at [facility] for severe respiratory distress and hypoxia (oxygen saturation of 70% on room air). He initially underwent a paracentesis, removing 6 liters of ascitic fluid in [facility]. Patient was admitted to intensive care unit, including mechanical ventilation and aggressive management of metabolic acidosis and hypoglycemia secondary to decompensated liver disease, his condition worsened. He developed septic shock due to spontaneous bacterial peritonitis, requiring escalation to five vasopressors (Levophed, Vasopressin, Phenylephrine, Epinephrine, and Dopamine at maximum doses) for hemodynamic support. The patient experienced multi-organ failure, with acute kidney injury likely due to hepatorenal syndrome and persistent hypotension, and remained hypoxemic despite high ventilatory support settings. His ammonia level ivana to 196. Given his poor prognosis, multiple discussions were held with his family, and they decided DNR. After one night on pressors and blood products were given, Patient was pronounced at 08:23 AM on Aug 2703/2024. The cause of was multi-organ failure secondary to septic shock for SBP in the context of decompensated liver cirrhosis, complicated by acute respiratory failure, hepatic encephalopathy, and refractory septic shock despite maximal vasopressor support. Case discussed with Dr Lubin Consults/Reason for consult GI due to GI bleeding Operations or Procedures INDICATION: r/o pe TECHNIQUE: Multidetector CTA of the chest was performed of the chest with 100 cc of intravenous contrast. PULMONARY ANGIOGRAPHY PROTOCOL was utilized using a bolus-tracking technique centered on the main pulmonary artery. Axial, coronal and sagittal multiplanar and MIP reformats were performed. Radiation Dose Information: CT Dose: CTDI volume is 20.33 mGy. Dose-length product is 507.8 mGy*cm The dose indicators for CT are the volume Computed Tomography (CT) Dose Index (CTDIvol) and the Dose Length Product (DLP), and are measured in units of mGy and mGy-cm, respectively. These indicators are not patient dose, but values generated from the CT scanner acquisition factors. The report includes radiation exposure data for exposures received during this examination. Comparison: Chest radiograph dated 09/25/2024 Findings: Pulmonary artery: Normal caliber of the pulmonary artery. Suboptimal enhancement of the pulmonary arteries limits evaluation for pulmonary embolism. No main pulmonary embolism. Lobar and other branches not evaluated. Lower neck: Normal thyroid. Lungs: Right upper and right middle lobe ground-glass opacities suspicious for pneumonia. Right basilar atelectasis. Left lower lobe passive atelectasis. Pleura: Moderate left pleural effusion. No pneumothorax. Heart/Vascular Structures: Normal heart size. Coronary artery calcifications. Normal caliber and enhancement of the aorta. Lymph Nodes: No adenopathy Musculoskeletal: No acute osseous abnormality. Upper abdomen: Limited portions of the upper abdomen are unremarkable. IMPRESSION: 1. Suboptimal enhancement of the pulmonary arteries limits evaluation for pulmonary embolism. No central pulmonary embolism. 2. Moderate left pleural effusion. Left lower lobe passive atelectasis. Right basilar dependent atelectasis. 3. Ground-glass opacities in the right upper and middle lobe suspicious for pneumonia in the appropriate clinical setting. INDICATION: Pain. TECHNIQUE: Multiple real-time sonographic images of the abdomen were obtained. COMPARISON: US ABDOMEN LIMITED on DOS: 09/26/24 FINDINGS: The liver is heterogeneous in echogenicity. The liver measures 14cm. No intrahepatic biliary ductal dilatation is noted. Small ascites. The gallbladder wall measures 0.3 cm and is unremarkable. gallbladder sludge is present.. The common duct measures 0.5 cm and is unremarkable. No pericholecystic fluid is noted. The right kidney measures 11cm. No hydronephrosis. The pancreas is not well visualized due to obscuration from bowel gas. The visualized portions of the IVC and aorta are grossly unremarkable. IMPRESSION: Gallbladder sludge is present. Hepatic steatosis. CHEST RADIOGRAPH Indication:dyspnea Technique: Single frontal view of the chest was obtained Comparison: XY CHEST XRAY 1 VIEW on DOS: 09/26/24 FINDINGS: Lines and Tubes: The endotracheal tube terminates 6.5 cm above the jan. Right central venous catheter terminates in the superior vena cava. Enteric tube courses below the left hemidiaphragm and terminates in the stomach. Lungs: Bilateral opacities. Pleura: Bilateral pleural effusions. No pneumothorax. Cardiomediastinal contours: Stable cardiovascular silhouette. Bones: No acute osseous abnormality. IMPRESSION: 1. Bilateral pleural effusions and bilateral opacities which may reflect pneumonia or edema. Final Diagnosis/Problems List # Acute metabolic encephalopathy due to hyperammonemia, hypoglycemia and septic shock. # Acute hypoxic respiratory failure secondary to septic shock and decompensated cirrhosis. #bilateral pleural effusion due to cirrhosis #Multiorgan dysfunction # Septic shock due to spontaneous bacterial peritonitis (SBP). #pericardial effusion due to cirrhosis #Decompensated Cirrhosis due to alcohol-related liver disease with a MELD score of 32 with signs of portal hypertension # Upper GI bleeding: possible esophageal varices # Severe metabolic acidosis due to septic shock and liver failure. # Hypoglycemia due to acute liver failure. # septic shock due to SBP. # Acute kidney injury due to hepatorenal syndrome . # Pancytopenia secondary to liver cirrhosis and hypersplenism . Discharge Disposition: at Hospital JOHNATHAN MARTÍNEZ RESIDENT Sep 27, 2024 08:26
[2024-09-27] MEDS ORDERED: chlordiazePOXIDE HCL 25 MG CAP PO SCH (10:00)
[2024-09-27 13:07] LABS: Protein, Body Fluid 1.1 g/dL (.)
--- NOTE | 2024-09-27 19:27 | DVHPNRES ---
Progress Note Date Seen: Sep 27, 2024 Resident Creating Document: JOHNATHAN MARTÍNEZ RESIDENT Has the PT tested + for MRSA If YES, has PT been informed?: No Medical Necessity Reason Pt with a Central, PICC or Fol: Yes The following are medically ne: Central Line Subjective Review of Systems Chief Complaint: 54-year-old male presenting with severe shortness of breath. HPI The patient, a 54-year-old male with a known history of COPD, alcohol-induced liver cirrhosis, and ascites, was transferred from [facility] after presenting with severe shortness of breath and hypoxia (70% on room air). He underwent a paracentesis there, with 6L of fluid removed . Here in the ICU The patient was intubated due to acute respiratory failure and has been started on multiple vasopressors for septic shock. He had episodes of hypoglycemia attributed to acute liver failure and significant metabolic acidosis. Past Medical History: Alcohol-induced liver cirrhosis Ascites History of left lower extremity DVT Anxiety Tobacco use Alcohol abuse According to the family patient was non compliant with medications, no PCP Objective vital signs Vital Sign Date Time Temp Pulse Resp B/P (MAP) Pulse Ox O2 Delivery O2 Flow Rate FiO2 09/27/24 08:17 73 29 09/27/24 08:00 98 Mechanical Ventilator+ 85 85 09/27/24 06:07 98.8 98.8 09/26/24 08:30 50.0 Total Intake and Output 09/26/24 09/26/24 09/27/24 15:00 23:00 07:00 Intake Total 1278.837 ml 2117.291 ml 2802.291 ml Output Total 3975 ml 150 ml Balance 1278.837 ml -1857.709 ml 2652.291 ml medications Current Medications Medications Dose Ordered Sig/Marii Route Start Time Stop Time Status Last Admin Dose Admin Nicotine 1 patch DAILY TD 09/26/24 10:00 Cancel Piperacillin Sod/ Tazobactam Sod 100 ml @ 25 mls/hr Q8HR IV 09/26/24 07:30 Cancel Norepinephrine Bitartrate 250 ml @ 3.75 mls/hr Q24H IV 09/26/24 08:30 UNV Phenylephrine HCl 80 mg/Sodium Chloride 250 ml @ 7.5 mls/hr Q24H IV 09/26/24 17:30 UNV Examination Pale, cold, fixed pupils HEENT:jaundice Respiratory:Intubated, bilateral breath soundsdiminished. Cardiovascular: tachycardic, normal S1, S2, tachycardia present. Abdominal: Distended, significant ascites noted and 2 blisters in flanks Extremities:Bilateral lower extremity edema, multiple bruises Skin: multiple blisters Neuro:Intubated, unable to assess detailed neurological status laboratory and microbiology Laboratory Tests 09/27/24 03:12 Test 09/27/24 03:12 Range/Units Serum Glucose 71 L 74-106 mg/dL Microbiology Date/Time Source Procedure Growth Status 09/26/24 11:30 Ascities Fluid Gram Stain - Final Resulted 09/26/24 11:30 Ascities Fluid Body Fluid Culture - Preliminary Resulted 09/26/24 10:13 Blood Blood Culture - Preliminary Resulted 09/26/24 09:00 Sputum Gram Stain - Final Resulted 09/26/24 09:00 Sputum Respiratory Culture - Preliminary Resulted 09/26/24 05:15 Leg Left Gram Stain - Final Resulted 09/26/24 05:15 Leg Left Wound Culture - Preliminary Resulted Problem List/Assessment/Plan Problem List/Assessment/Plan Neurologic: # Acute metabolic encephalopathy due to hyperammonemia, hypoglycemia and septic shock. Ammonia level: 196. Patient was on severe organ disfunction: no PO medication Respiratory: # Acute hypoxic respiratory failure secondary to septic shock and decompensated cirrhosis. #bilateral pleural effusion due to cirrhosis Patient is on fentanyl and propofol RASS -4 mechanical ventilation RR 30 VT 500 PEEP 5 Patient today with bilateral pleural effusion and pulmonary edema Cardiovascular: #Multiorgan dysfunction # Septic shock due to spontaneous bacterial peritonitis (SBP). #pericardial effusion due to cirrhosis Patient on Levophed, Vasopressin, Phenylephrine, Epinephrine and dopamine on max dosage Hydrocortisone administered for shock management. Monitor cardiac function and hemodynamics. DNR status confirmed via phone with son (in [place]), discussed with mother and daughter. ECHO: EF 60% [id number] sized pericardial effusion best seen at the apical part of the left atrium. With a chronic fibrotic echodense structure. No evidence of increased intrapericardial pressure was detected. 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 Continue Protonix and Octreotide infusions Blood products ordered RBC, platelets and frozen plasma Endocrine/Metabolic: # Severe metabolic acidosis due to septic shock and liver failure. Bicarbonate drip and flushes to correct acidemia # Hypoglycemia due to acute liver failure. administer IV dextrose as required. Infectious Disease: # septic shock due to SBP. Paracentesis confirmed high WBC in peritoneal fluid. Continue Meropenem and Vancomycin, monitor culture results, and adjust antibiotics based on sensitivities. Renal: # Acute kidney injury due to hepatorenal syndrome . Creatinine increased from 0.81 - 1.4 - 1.6 - 2.2 urinary output none Nephrology on the case Hematology: # Pancytopenia secondary to liver cirrhosis and hypersplenism . Hgb 8.9, Plt 95 WBC 8.8 Blood products given 1 RBC, 1 unit of platelets and 1 unit of frozen plasma General: DNR Status: Confirmed as per discussion with son, mother, and daughter. Continue ICU-level monitoring and care while respecting DNR. No compressions no defibrillation. High chance of short term mortality Critical care spent more than 120 min excluding procedures Case discussed with Dr Lubin and Dr Winters PGY2 Plan discussed with: Spouse, Other (rn) My Orders My Orders Orders - JOHNATHAN MARTÍNEZ RESIDENT Procedure Category Date Status Time Insert Rectal Tube ORDERS 09/26/24 Transmitted 19:35 Code Status CODE 09/26/24 Transmitted 21:31 Dietary Evaluation Review Comments: F/U assessement in 2-3 days JOHNATHAN MARTÍNEZ RESIDENT Sep 27, 2024 19:27
[2024-09-28] MEDS ORDERED: chlordiazePOXIDE HCL 25 MG CAP PO SCH (10:00)
[2024-09-29] MEDS ORDERED: chlordiazePOXIDE HCL 25 MG CAP PO SCH (07:00)
== END 2024-09-27 15:00 | DRG 720 ==
LOC: EDBD 01:07 → ER 01:07 → TELE 10:13 → ER 10:21 → TELE-E-ADS 20:57 → ICU WEST 09-26 04:28
PROVIDERS: ADMIT Internal Medicine; ATTEND Internal Medicine
PROC: 5A1935Z Respiratory Ventilation, Less than 24 Consecutive Hours (ICD-10-PCS; principal; 2024-09-26)
PROC: 0BH18EZ Insertion of Endotracheal Airway into Trachea, Via Natural or Artificial Opening Endoscopic (ICD-10-PCS; 2024-09-26)
PROC: 0W9G3ZZ Drainage of Peritoneal Cavity, Percutaneous Approach (ICD-10-PCS; 2024-09-26)
PROC: 02HV33Z Insertion of Infusion Device into Superior Vena Cava, Percutaneous Approach (ICD-10-PCS; 2024-09-26)
PROC: B548ZZA Ultrasonography of Superior Vena Cava, Guidance (ICD-10-PCS; 2024-09-26)
PROC: 30233N1 Transfusion of Nonautologous Red Blood Cells into Peripheral Vein, Percutaneous Approach (ICD-10-PCS; 2024-09-26)
PROC: 30233R1 Transfusion of Nonautologous Platelets into Peripheral Vein, Percutaneous Approach (ICD-10-PCS; 2024-09-26)
PROC: 30233K1 Transfusion of Nonautologous Frozen Plasma into Peripheral Vein, Percutaneous Approach (ICD-10-PCS; 2024-09-27)
DX: A41.9 Sepsis, unspecified organism (principal); J96.01 Acute respiratory failure with hypoxia; K76.7 Hepatorenal syndrome; R65.21 Severe sepsis with septic shock; G93.41 Metabolic encephalopathy; D61.818 Other pancytopenia; K65.2 Spontaneous bacterial peritonitis; K76.6 Portal hypertension; I31.39 Other pericardial effusion (noninflammatory); E87.20 Acidosis, unspecified; Z20.822 Contact with and (suspected) exposure to COVID-19; J44.1 Chronic obstructive pulmonary disease with (acute) exacerbation; K92.2 Gastrointestinal hemorrhage, unspecified; E16.2 Hypoglycemia, unspecified; N17.9 Acute kidney failure, unspecified; F41.9 Anxiety disorder, unspecified; K70.31 Alcoholic cirrhosis of liver with ascites; J91.8 Pleural effusion in other conditions classified elsewhere; Z66 Do not resuscitate; K76.82 Hepatic encephalopathy; F17.200 Nicotine dependence, unspecified, uncomplicated; I50.9 Heart failure, unspecified; Z86.718 Personal history of other venous thrombosis and embolism; Z79.01 Long term (current) use of anticoagulants; Z82.3 Family history of stroke; Z51.5 Encounter for palliative care
CPT/HCPCS: 36415; 36600; 49083; 71045; 71275; 76604; 76705; 76942; 80048; 80053; 80061; 80074; 80307; 80320; 81001; 82140; 82805; 82962; 83036; 83605; 83880; 83986; 84484; 85007; 85025; 85027; 85379; 85610; 85730; 86850; 86900; 86901; 86920; 87040; 87070; 87077; 87081; 87186; 87205; 87426; 89051; 93005; 93306; 93970; 94002; 94003; 94640; 96365; 96375; 96376; G0378; J0171; J2185; J2405; J2470; J2704; J3480; P9047